=== PATIENT | female | born 1990 | race Caucasian/White ===

== ENCOUNTER 2020-08-29 01:12 | Day surgery (SDC) | payer OTHER ==
[2020-08-29 02:09] VITALS: BMI 29.2
[2020-08-29] MEDS ORDERED: hydrALAZINE 20 MG/ML VIAL SLOW IVP PRN (02:10)
== END 2020-08-29 03:20 | disposition home or self-care (01) ==
LOC: CSHLD/OP 01:12
PROVIDERS: ATTEND Family Medicine
DX: O26.892 Other specified pregnancy related conditions, second trimester (principal); R10.32 Left lower quadrant pain; Z3A.20 20 weeks gestation of pregnancy; Z79.82 Long term (current) use of aspirin
CPT/HCPCS: 76857; 99282

== ENCOUNTER 2020-12-18 12:57 | Outpatient (CLI) | payer OTHER ==
[2020-12-19 08:54] LABS: SARS-CoV-2 PCR by NAA Not Detected (NotDetected)
== END 2020-12-18 12:58 | disposition home or self-care (01) ==
LOC: CSHLAB 12:57
PROVIDERS: ATTEND Family Medicine
DX: Z20.822 Contact with and (suspected) exposure to COVID-19 (principal)
CPT/HCPCS: U0003; U0005

== ENCOUNTER 2020-12-21 17:41 | Inpatient (IN) | payer OTHER ==
[~2020-12-21 17:41] MED LIST: Terbutaline Sulfate 1 MG/ML VIAL ONE
[2020-12-21 18:20] VITALS: BMI 32.2
[2020-12-21] MEDS ORDERED: Ibuprofen 800 MG TAB PO PRN (18:46)
[2020-12-21] MEDS ORDERED: Promethazine HCl 25 MG/ML VIAL IM PRN (18:46)
[2020-12-21] MEDS ORDERED: HYDROcodone/Acetaminophen 5/325 mg Tablet PO PRN ×2 (18:46)
[2020-12-21] MEDS ORDERED: Lidocaine 1% (PF) 30 ML VIAL SC PRN (18:46)
[2020-12-21] MEDS ORDERED: Ondansetron PF 4 MG/2 ML Vial IVP PRN (18:46)
[2020-12-21] MEDS ORDERED: Misoprostol 200 MCG TAB PR PRN (18:46)
[2020-12-21] MEDS ORDERED: Docusate 100 MG CAP PO PRN (18:46)
[2020-12-21] MEDS ORDERED: Acetaminophen 500 MG TAB PO PRN (18:46)
[2020-12-21] MEDS ORDERED: hydrALAZINE 20 MG/ML VIAL SLOW IVP PRN (18:46)
[2020-12-21] MEDS ORDERED: NS w/ Oxytocin 30 units 500 ML IV SCH (19:00)
[2020-12-21] MEDS: Misoprostol 100 MCG TAB VAG SCH ×2 (19:28→23:57)
[2020-12-21 19:47] LABS: Hemoglobin 9.3 g/dL (12.0-15.5); Mean Corpuscular HGB CONC 32.7 g/dL (32.0-36.0); Mean Corpuscular Volume 82.6 fl (81.6-98.3); Mean Platelet Volume 12.6 fl (7.4-10.4); Platelet Count 190 10x3/uL (150-450); RBC Distribution Width 12.8 % (11.5-14.5); Red Blood Cell (RBC) Count 3.44 10x6/uL (3.90-5.03); White Blood Cell (WBC) Count 8.7 10x3/uL (3.5-10.5)
[2020-12-21 20:18] LABS: Hep B Surf Ag Non-Reactive S/CO (NonReactive); Syphilis Antibody Nonreactive (Nonreactive); Syphilis Antibody Index 0.12 S/CO (<1.00 Non-Reactive)
[2020-12-21 20:28] LABS: HBSAg Index 0.11 S/CO (0-0.99)
[2020-12-21] MEDS: Labetalol 100 MG TAB PO SCH (20:45)
[2020-12-22] MEDS: Misoprostol 100 MCG TAB VAG SCH (03:19)
[2020-12-22] MEDS ORDERED: Promethazine HCl 25 MG/ML VIAL IM PRN (04:49)
[2020-12-22] MEDS ORDERED: Acetaminophen 325 MG TAB PO PRN (04:49)
[2020-12-22] MEDS ORDERED: Hydrocerin (Eucerin) Cream 120 gm Jar TOP PRN (04:49)
[2020-12-22] MEDS ORDERED: Lactated Ringer's 500 ML IV PRN (04:49)
[2020-12-22] MEDS ORDERED: Ondansetron PF 4 MG/2 ML Vial IVP PRN (04:49)
[2020-12-22] MEDS ORDERED: Naloxone HCl 0.4 mg/ml Vial IVP PRN ×2 (04:49)
[2020-12-22] MEDS ORDERED: diphenhydrAMINE 50 MG/ML VIAL IVP PRN (04:49)
[2020-12-22] MEDS ORDERED: ePHEDrine Sulfate 50 MG/10 ML VIAL SLOW IVP PRN (04:49)
[2020-12-22] MEDS ORDERED: Communication Order-Pharmacy FS SCH (05:00)
[2020-12-22] MEDS: Fentanyl 2 mcg/Bupivacaine 0.1% Cassette 100 ML EPIDURAL SCH ×3 (05:08→17:55)
[2020-12-22] MEDS: NS w/ Oxytocin 30 units 500 ML IV SCH (07:23)
[2020-12-22] MEDS: Labetalol 100 MG TAB PO SCH ×2 (08:48→20:45)
[2020-12-23] MEDS: NS w/ Oxytocin 30 units 500 ML IV SCH (00:26)
[2020-12-23] MEDS ORDERED: NS w/ Oxytocin 30 units 500 ML IV SCH (02:12)
[2020-12-23] MEDS ORDERED: hydrALAZINE 20 MG/ML VIAL SLOW IVP PRN (02:12)
[2020-12-23] MEDS ORDERED: Preparation H Ointment 28 GM TUBE PR PRN (02:12)
[2020-12-23] MEDS ORDERED: Boostrix 0.5 ML (Tdap) VIAL IM ONE (02:12)
[2020-12-23] MEDS ORDERED: Misoprostol 200 MCG TAB VAG PRN (02:12)
[2020-12-23] MEDS ORDERED: diphenhydrAMINE 25 MG CAP PO PRN (02:12)
[2020-12-23] MEDS ORDERED: Milk Of Magnesia 30 ML UDCUP PO PRN (02:12)
[2020-12-23] MEDS ORDERED: Bisacodyl 10 MG SUPP PR PRN (02:12)
[2020-12-23] MEDS ORDERED: Lanolin Ointment 7 GM TUBE TOP PRN (02:12)
[2020-12-23] MEDS ORDERED: Benzocaine-Menthol 82.5 ML CAN TOP PRN (02:12)
[2020-12-23] MEDS ORDERED: Ondansetron PF 4 MG/2 ML Vial IVP PRN (02:12)
[2020-12-23] MEDS: Ibuprofen 800 MG TAB PO SCH ×3 (05:16→21:55)
[2020-12-23] MEDS: Docusate Calcium (SURFAK) 240 MG CAP PO SCH ×2 (08:57→21:56)
[2020-12-23] MEDS: Ferrous Sulfate 325 MG TAB PO SCH ×2 (08:57→17:17)
[2020-12-23] MEDS: Prenatal Vitamin 1 TAB PO SCH (08:57)
[2020-12-23] MEDS ORDERED: Labetalol 100 MG TAB PO SCH (09:30)
[2020-12-23] MEDS: Misoprostol 100 MCG TAB VAG SCH ×2 (09:58→09:59)
[2020-12-23] MEDS: Labetalol 100 MG TAB PO SCH (21:56)
[2020-12-24] MEDS: Ibuprofen 800 MG TAB PO SCH ×3 (05:19→21:43)
[2020-12-24] MEDS ORDERED: Polyethylene Glycol 3350 17 GM Packet PO PRN (08:05)
[2020-12-24] MEDS: Ferrous Sulfate 325 MG TAB PO SCH ×2 (08:21→17:28)
[2020-12-24] MEDS: Prenatal Vitamin 1 TAB PO SCH (08:21)
[2020-12-24] MEDS: Labetalol 100 MG TAB PO SCH ×2 (08:21→21:43)
[2020-12-24] MEDS: Docusate Calcium (SURFAK) 240 MG CAP PO SCH ×2 (08:21→19:51)
[2020-12-25] MEDS: Ibuprofen 800 MG TAB PO SCH ×2 (05:05→13:43)
[2020-12-25] MEDS ORDERED: Hydrochlorothiazide 25 MG TAB PO SCH (09:00)
[2020-12-25] MEDS: Docusate Calcium (SURFAK) 240 MG CAP PO SCH (09:06)
[2020-12-25] MEDS: Prenatal Vitamin 1 TAB PO SCH (09:06)
[2020-12-25] MEDS: Ferrous Sulfate 325 MG TAB PO SCH (09:06)
[2020-12-25 13:12] VITALS: BP 144/83; TEMP 97.9
== END 2020-12-25 16:01 | disposition home or self-care (01) | DRG 807 ==
LOC: CSHLD 17:41 → CSHPP 12-23 08:42
PROVIDERS: ADMIT Family Medicine; ATTEND Family Medicine
PROC: 10E0XZZ Delivery of Products of Conception, External Approach (ICD-10-PCS; principal; 2020-12-23)
PROC: 10907ZC Drainage of Amniotic Fluid, Therapeutic from Products of Conception, Via Natural or Artificial Opening (ICD-10-PCS; 2020-12-23)
PROC: 3E0P7VZ Introduction of Hormone into Female Reproductive, Via Natural or Artificial Opening (ICD-10-PCS; 2020-12-23)
PROC: 3E033VJ Introduction of Other Hormone into Peripheral Vein, Percutaneous Approach (ICD-10-PCS; 2020-12-23)
PROC: 0UQMXZZ Repair Vulva, External Approach (ICD-10-PCS; 2020-12-23)
PROC: 0W8NXZZ Division of Female Perineum, External Approach (ICD-10-PCS; 2020-12-23)
DX: O10.02 Pre-existing essential hypertension complicating childbirth (principal); Z37.0 Single live birth; Z20.822 Contact with and (suspected) exposure to COVID-19; O71.82 Other specified trauma to perineum and vulva; O99.02 Anemia complicating childbirth; D64.9 Anemia, unspecified; O76 Abnormality in fetal heart rate and rhythm complicating labor and delivery; Z3A.37 37 weeks gestation of pregnancy
CPT/HCPCS: 36415; 51702; 85027; 86780; 86850; 86900; 86901; 87340; J2590; J3105